=== PATIENT | male | born 1950 | race Caucasian/White ===

== ENCOUNTER 2017-04-09 09:23 | Day surgery (SDC) | payer MEDICARE, OTHER ==
[2017-04-09 09:46] LABS: INR 1.09; PROTHROMBIN TIME (PATIENT) 12.3 SECONDS (9.5-12.1)
[2017-04-09] MEDS ORDERED: LIDOCAINE 2% MDV (20MG/ML) 20ML VIAL IV ONE (14:00)
[2017-04-09] MEDS ORDERED: PROPOFOL 10 MG/ML VIAL IV ONE (14:00)
[2017-04-09] MEDS ORDERED: FENTANYL PF 100MCG/2ML VIAL IV ONE (14:00)
--- NOTE | 2017-04-15 13:20 | Operative Note ---
DATE OF SURGERY: 04/09/2017 OPERATION: ESOPHAGOGASTRODUODENOSCOPY. PREOPERATIVE DIAGNOSIS: GI bleed. POSTOPERATIVE DIAGNOSES: 1. Sigmoid diverticulosis. 2. Ascending colon polyps. 3. Normal upper endoscopy. ESTIMATED BLOOD LOSS: Minimum. SPECIMENS: Ascending colon polyps. PREPARATION QUALITY: Good. COMPLICATIONS: None apparent. PROCEDURE: After informed consent was obtained from the patient, he was placed in the left lateral decubitus position in the endoscopy suite. He was sedated and monitored by the department of anesthesia. A well-lubricated IVT933 gastroscope was placed in the posterior oropharynx and under direct visualization passed to the proximal esophagus. The endoscope was advanced through the proximal, mid, and distal esophagus. The GE junction and esophagus were unremarkable. No ulcers, erosions, strictures, or varices were seen. The gastric body demonstrated normal distensibility, normal rugal folds. The body, antrum, pylorus cannulated, duodenal bulb and sweep were unremarkable. There was no fresh or old blood or ulcers or inflammatory changes. No mass lesions were seen. J-turn views of the proximal stomach were unremarkable. The endoscope was then straightened and retracted from the patient with no new findings noted. Digital rectal exam was unremarkable. A well-lubricated CF160 AL adult colonoscope was inserted into the rectum and advanced to the cecum without difficulty. Preparation quality was good. The cecum and appendiceal orifice and ileocecal valve were unremarkable. In the ascending colon, there were 2 diminutive polyps, one 4 mm and one 3 mm, each removed with a cold forceps. Minimal bleeding was noted at the site. The remainder of the ascending colon, transverse colon, and descending colon were unremarkable. The sigmoid colon demonstrated [id number] diverticular changes without inflammation, polyps, or mass lesions being identified. The rectum was unremarkable in forward and in J-turn views. The endoscope was straightened, the rectal ampulla deflated, and the endoscope was removed. RECOMMENDATIONS: The patient should resume his medications and diet. He will require repeat colonoscopy in 3-5 years pending tissue results. I will have the patient undergo a capsule endoscopy to further evaluate the GI tract and determine if there is a small bowel source for his apparent recent bleed. As always, thank you for allowing me to participate in the healthcare of your patients. CC: [facility]
== END 2017-04-09 11:42 | disposition home or self-care (01) ==
LOC: HOP 09:23
PROVIDERS: ATTEND Internal Medicine Gastroenterology
DX: D12.2 Benign neoplasm of ascending colon (principal); K57.30 Diverticulosis of large intestine without perforation or abscess without bleeding; I10 Essential (primary) hypertension; E78.00 Pure hypercholesterolemia, unspecified; Z95.2 Presence of prosthetic heart valve
CPT/HCPCS: 85610

== ENCOUNTER 2017-09-25 14:56 | Emergency (ER) | payer MEDICARE, OTHER ==
--- NOTE | 2017-09-25 15:34 | Emergency Department Record ---
History of Present Illness - General Chief complaint: Lower Extremity Pain Stated complaint: LEFT LOWER LEG SORE Time Seen by Provider: 09/25/17 15:27 Source: Patient Mode of Arrival: Wheelchair - History of Present Illness Initial comments: the patient has a long history of vascular compromise, angioplasty of his lower extremities, and heart valve replacement now on Coumadin. He has a wound on his left lower leg which is not healing as it should. He changes the dressing himself every [address] Nichole just put him on Bactrim last week as well. He is concerned because of it not healing and continued weeping. He denies f,c, cp, scott ap, sob sob. Onset/Timin -: Week(s) Location: Left, Lower Leg Improves with: Nothing Worsens with: Nothing - Related Data Allergies Allergy/AdvReac Type Severity Reaction Status Date / Time Penicillins AdvReac ANAPHYLAXIS Verified 05/11/16 20:28 Travel Screening - Travel/Exposure Within Last 30 Days Have you traveled within the last 30 days?: No - Travel/Exposure Within Last Year Have you traveled outside the [place] in the last year?: No - Additonal Travel Details Have you been exposed to anyone with a communicable illness?: No - Travel Symptoms Symptom Screening: None Review of Systems Reviewed: No additional complaints except as noted below Constitutional: Reports: As per HPI. Denies: Chills, Fever, Malaise, Night sweats, Weakness, Weight change Eyes: Reports: As per HPI. Denies: Eye discharge, Eye pain, Photophobia, Vision change ENT: Reports: As per HPI. Denies: Congestion, Dental pain, Ear pain, Epistaxis , Hearing loss, Throat pain Respiratory: Reports: As per HPI. Denies: Cough, Dyspnea, Hemoptysis, Stridor, Wheezes Cardiovascular: Reports: As per HPI. Denies: Arrhythmia, Chest pain, Dyspnea on exertion, Edema, Murmurs, Orthopnea, Palpitations, Paroxysmal nocturnal dyspnea, Rheumatic Fever, Syncope Endocrine: Reports: As per HPI. Denies: Fatigue, Heat or cold intolerance, Polydipsia, Polyuria Gastrointestinal: Reports: As per HPI. Denies: Abdominal pain, Constipation, Diarrhea, Hematemesis, Hematochezia, Melena, Nausea, Vomiting Genitourinary: Reports: As per HPI. Denies: Dysuria, Frequency, Hematuria, Incontinence, Retention, Testicular pain, Testicular mass, Urgency Musculoskeletal: Reports: As per HPI. Denies: Arthralgia, Back pain, Gout, Joint swelling, Myalgia, Neck pain Skin: Reports: As per HPI. Denies: Bruising, Change in color, Change in hair/ nails, Lesions, Pruritus, Rash Neurological: Reports: As per HPI. Denies: Abnormal gait, Confusion, Headache, Numbness, Paresthesias, Seizure, Tingling, Tremors, Vertigo, Weakness Psychiatric: Reports: As per HPI. Denies: Anxiety, Auditory hallucinations, Depression, Homicidal thoughts, Suicidal thoughts, Visual hallucinations Hematological/Lymphatic: Reports: As per HPI. Denies: Anemia, Blood Clots, Easy bleeding, Easy bruising, Swollen glands Past Medical History - SOCIAL HISTORY Smoking Status: Former smoker Alcohol Use: Occasional Drug Use: None - RESPIRATORY Hx Respiratory Disorders: Yes Hx Bronchitis: Yes Hx Dyspnea: Yes Hx Sleep Apnea: Yes Hx of CPAP: No - CARDIOVASCULAR Hx Cardio Disorders: Yes Hx Cardiac Cath: Yes Hx Hypertension: Yes Hx Vascular Disease: Yes (Aortic valve replacement) - NEURO Hx Neuro Disorders: No - GI Hx GI Disorders: Yes Hx Reflux: Yes Hx Irritable Bowel: Yes Comment:: some difficulty with milk products - Hx Genitourinary Disorders: Yes Hx Kidney Stones: Yes - ENDOCRINE Hx Endocrine Disorders: No - MUSCULOSKELETAL Hx Musculoskeletal Disorders: Yes Hx Arthritis: Yes - PSYCH Hx Psych Problems: No - HEMATOLOGY/ONCOLOGY Hx Hematology/Oncology Disorders: No Comment:: problems with blood vessels in his legs Family Medical History Any Significant Family History?: No Hx Cancer: Father Hx Resp Disorders: Mother Physical Exam - General General Appearance: Alert, Oriented x3, Cooperative, No acute distress - Head Head exam: Normal inspection - Eye Eye exam: Normal appearance, PERRL Pupils: Normal accommodation - ENT ENT exam: Normal exam, Mucous membranes moist, Normal external ear exam, Normal orophraynx, TM's normal bilaterally Ear exam: Normal external inspection. negative: External canal tenderness Nasal Exam: Normal inspection. negative: Discharge, Sinus tenderness Mouth exam: Normal external inspection, Tongue normal Teeth exam: Normal inspection. negative: Dental caries Throat exam: Normal inspection. negative: Tonsillar erythema, Tonsillar exudate - Neck Neck exam: Normal inspection, Full ROM. negative: Tenderness - Respiratory Respiratory exam: Normal lung sounds bilaterally. negative: Respiratory distress - Cardiovascular Cardiovascular Exam: Regular rate, Normal rhythm, Normal heart sounds - GI/Abdominal GI/Abdominal exam: Soft, Normal bowel sounds. negative: Tenderness - Rectal Rectal exam: Deferred - exam: Deferred - Extremities Extremities exam: Normal inspection, Full ROM, Normal capillary refill, Other ( chronic vascular changes bilateral legs; left lateral lower leg with superficial upper layer of skin loss and weeping, all appears chronic. ). negative: Tenderness - Back Back exam: Reports: Normal inspection, Full ROM. Denies: Muscle spasm, Rash noted, Tenderness - Neurological Neurological exam: Alert, CN II-XII intact, Normal gait, Oriented X3, Reflexes normal. negative: Motor sensory deficit - Psychiatric Psychiatric exam: Normal affect, Normal mood - Skin Skin exam: Dry, Intact, Normal color, Warm Course Vital Signs 09/25/17 15:15 Temperature 98.5 F Pulse Rate 82 Respiratory 16 Rate Blood Pressure 179/90 Pulse Ox 94 L Medical Decision Making - Management Options MDM Management: No Additional Work-up Planned - Data Complexity MDM Data: X-Ray Ordered and/or Reviewed (Left lower leg xray: no bony defect or evidence of osteo; diffuse STS per radiology.) Disposition Clinical Impression: Vascular insufficiency of extremity Chronic ulcer of leg, limited to breakdown of skin Qualifiers: Laterality: left Qualified Code(s): L97.921 - Non-pressure chronic ulcer of unspecified part of left lower leg limited to breakdown of skin Disposition: Home, Self-Care Condition: (1) Good Instructions: Chronic Wound Care (ED) Additional Instructions: Keep covered for protection. Keep your previously scheduled apointment with Dr. Kim 10-01-17 at 11 a.m. without fail. Continue present meds. Forms: Patient Portal Access Quality - Quality Measures Quality Measures: N/A - Blood Pressure Screening Does Patient Have Any of the Following: No Blood Pressure Classification: Hypertensive Reading Systolic Measurement: 179 Diastolic Measurement: 90 Screening for High Blood Pressure: Patient Exclusion, Hx of HTN [G9744]
--- NOTE | 2017-09-25 23:03 | RADIOLOGY REPORT ---
EXAM: LOWER LEG, LEFT HISTORY: PAIN. TECHNIQUE: Two views of the left leg. COMPARISON: None. ENCOUNTER: Initial. FINDINGS: Diffuse soft tissue swelling and inflammation. No soft tissue gas. No acute osseous abnormality. No sinus tract formation. Degenerative changes are noted. IMPRESSION: NO ACUTE OSSEOUS ABNORMALITY. DIFFUSE SOFT TISSUE SWELLING. NO RADIOGRAPHIC EVIDENCE FOR OSTEOMYELITIS. JOB NUMBER: [id number] MTDD
== END 2017-09-25 16:38 | disposition home or self-care (01) ==
LOC: ER 14:56
DX: L97.821 Non-pressure chronic ulcer of other part of left lower leg limited to breakdown of skin (principal); I87.2 Venous insufficiency (chronic) (peripheral); I10 Essential (primary) hypertension; Z95.2 Presence of prosthetic heart valve; Z87.891 Personal history of nicotine dependence; Z79.01 Long term (current) use of anticoagulants
CPT/HCPCS: 99283; 99284

== ENCOUNTER 2017-11-24 15:35 | Inpatient (IN) | payer MEDICARE, OTHER ==
--- NOTE | 2017-11-24 16:20 | Emergency Department Record ---
History of Present Illness - General Chief Complaint: Shortness of breath Stated Complaint: VAZQUEZ,HYPERTENSIVE, Time Seen by Provider: 11/24/17 16:02 Source: Patient, Family Mode of Arrival: Ambulatory Limitations: No limitations - History of Present Illness Initial Comments: The patient is here due to a 2 week hx of progressively increasing SOB, VAZQUEZ, and BEE. He denies any Cp but has had increased leg edema. The patient denies any cough, fever, or sputum production. He does have a pacemaker and did have it interrogated recently and was told it was normal. MD Complaint: Shortness of breath Onset/Timin -: Week(s) Improves With: Nothing Worsens With: Exertion Associated Symptoms: Denies other symptoms - Related Data Home Medications Medication Instructions Recorded Confirmed Last Taken Albuterol Sulfate [Proair Hfa] 1 - 2 puff IH .EVERY 4-6 HOURS PRN 11/24/1711/2411/24/17 Aspirin [Aspir-Low] 81 mg PO DAILY 11/24/17 11/24/17 11/24/17 Fluticasone Propionate [Flonase] 2 spray EACH NARES DAILY 11/24/17 11/24/17 Allergies Allergy/AdvReac Type Severity Reaction Status Date / Time Penicillins AdvReac ANAPHYLAXIS Verified 11/24/17 16:55 Travel Screening - Travel/Exposure Within Last 30 Days Have you traveled within the last 30 days?: No - Travel/Exposure Within Last Year Have you traveled outside the [place] in the last year?: No - Additonal Travel Details Have you been exposed to anyone with a communicable illness?: No - Travel Symptoms Symptom Screening: None Review of Systems Constitutional: Denies: Chills, Fever Eyes: Denies: Eye discharge ENT: Denies: Congestion Respiratory: Reports: Dyspnea. Denies: Cough Cardiovascular: Denies: Arrhythmia, Chest pain Past Medical History - SOCIAL HISTORY Smoking Status: Former smoker Alcohol Use: Occasional Drug Use: None - RESPIRATORY Hx Respiratory Disorders: Yes Hx Bronchitis: Yes Hx Dyspnea: Yes Hx Sleep Apnea: Yes Hx of CPAP: No - CARDIOVASCULAR Hx Cardio Disorders: Yes Hx Cardiac Cath: Yes Hx Hypertension: Yes Hx Pacemaker/Defib: Yes Hx Vascular Disease: Yes (Aortic valve replacement) - NEURO Hx Neuro Disorders: No - GI Hx GI Disorders: Yes Hx Reflux: Yes Hx Irritable Bowel: Yes Comment:: some difficulty with milk products - Hx Genitourinary Disorders: Yes Hx Kidney Stones: Yes - ENDOCRINE Hx Endocrine Disorders: No - MUSCULOSKELETAL Hx Musculoskeletal Disorders: Yes Hx Arthritis: Yes - PSYCH Hx Psych Problems: No - HEMATOLOGY/ONCOLOGY Hx Hematology/Oncology Disorders: No Comment:: problems with blood vessels in his legs Family Medical History Any Significant Family History?: No Hx Cancer: Father Hx Resp Disorders: Mother Physical Exam - General General Appearance: Alert, Oriented x3, Cooperative, No acute distress - Head Head exam: Atraumatic, Normocephalic, Normal inspection - Eye Eye exam: Normal appearance, PERRL - ENT Throat exam: Normal inspection. negative: Tonsillar erythema, Tonsillar exudate - Neck Neck exam: Normal inspection, Full ROM. negative: Tenderness - Respiratory Respiratory exam: Decreased breath sounds. negative: Normal lung sounds bilaterally, Rales, Respiratory distress, Rhonchi, Stridor, Wheezes - Cardiovascular Cardiovascular Exam: Regular rate, Normal rhythm, Normal heart sounds - GI/Abdominal GI/Abdominal exam: Soft (Obese.), Normal bowel sounds. negative: Tenderness - Extremities Extremities exam: Pedal edema (chronic and 3+). negative: Normal inspection - Neurological Neurological exam: Alert. negative: Motor sensory deficit Course Vital Signs 11/24/17 11/24/17 15:44 16:12 Temperature 98.2 F Pulse Rate 50 L Respiratory 18 Rate Blood Pressure 158/70 [Left Arm] Pulse Ox 96 - Reevaluation(s) Reevaluation #1: The patient is doing better at this time. His O2 sats are improved on 3 Liters of Oxygen. I did discuss the workup with the patient and it appears he has mild CHF. Due to that fact I did order IV Lasix and did recommend hospital admission overnight and the patient agreed. I then did discuss the case with Wen CINTRON ) and she does accept the admission. 11/24/17 17:30 Medical Decision Making - Management Options MDM Management: Additional Work-up Planned (e.g. ADM/Transfer/OP Study) - Data Complexity MDM Data: Labs Ordered and/or Reviewed, X-Ray Ordered and/or Reviewed, EKG Ordered and/or Reviewed - Lab Data Result diagrams: 11/24/17 16:29 11/24/17 16:29 - EKG Data -: EKG Interpreted by Me (NSR with vent paced rhythm.) - Radiology Data Radiology results: Report reviewed (CXR: CMG stable, Mild CHF.) Disposition Disposition: Admit Clinical Impression: CHF (congestive heart failure) Qualifiers: Heart failure type: unspecified Heart failure chronicity: acute Qualified Code( s): I50.9 - Heart failure, unspecified Disposition: Still a Patient at [facility] Decision to Admit: Admit from ER Decision to Admit Date: 11/24/17 Decision to Admit Time: 17:31 Accepting Physician: Grant Time Discussed w/Accepting Physician: 17:32 Condition: (2) Stable Instructions: Dyspnea (ED) Forms: Patient Portal Access Time of Disposition: 17:32 Quality - Quality Measures Quality Measures: N/A - Blood Pressure Screening View Details: Yes Does Patient Have Any of the Following: No Blood Pressure Classification: Pre-Hypertensive BP Reading Systolic Measurement: 158 Diastolic Measurement: 80 Screening for High Blood Pressure: < Pre-Hypertensive BP, F/U Documented > [ G8950] Pre-Hypertensive Follow-up Interventions: Referral to alternative/primary care provider.
[2017-11-24 16:35] LABS: BASO % 0.4 % (0-6); EOS % 2.2 % (0-6); GRAN % 75.3 % (47-80); HEMATOCRIT 44.7 % (42.0-52.0); HEMOGLOBIN 13.6 gm/dl (14.0-18.0); LYMPH % 13.6 % (16-45); MEAN CELL VOLUME 77.5 fl (81-97); MEAN CORPUSCULAR HGB CONC 30.4 g/dl (32-36); MEAN PLATELET VOLUME 9.8 fl (7.4-10.4); MONO % 8.5 % (0-9); PLATELET COUNT 159 K/uL (130-400); RED BLOOD COUNT 5.77 M/uL (4.40-5.70); RED CELL DISTRIBUTION WIDTH 18.4 % (11.5-14.5); WHITE BLOOD COUNT W/O DIFF 7.9 K/uL (4.2-12.2)
[2017-11-24 16:36] LABS: MEAN CORPUSCULAR HEMOGLOBIN 23.5 pg (27-33)
[2017-11-24 16:45] LABS: BLOOD UREA NITROGEN 15 mg/dL (8-23); CREATININE 0.7 mg/dL (0.7-1.2); EST GLOMERULAR FILTRATION RATE > 60 mL/min
[2017-11-24 16:48] LABS: GLUCOSE,RANDOM 122 mg/dL (74-109); INR 2.8; PARTIAL THROMBOPLASTIN TIME 34.8 SECONDS (24.5-39.1); PROTHROMBIN TIME (PATIENT) 30.4 SECONDS (9.5-12.1)
[2017-11-24 16:51] LABS: CREATINE PHOSPHOKINASE 42 U/L (39-308)
[2017-11-24 16:53] LABS: CKMB 1.9 ng/mL (<6.73)
[2017-11-24] MEDS ORDERED: FUROSEMIDE IV 40MG/4ML VIAL IVP ONE (17:22)
[2017-11-24] MEDS ORDERED: ALBUTEROL HFA 8 GM INHALER INH PRN ×2 (19:15→19:29)
[2017-11-24] MEDS ORDERED: FLU VAC QS 2017-18 (INPT, 6MO+) 60MCG/0.5ML IM ONE (19:23)
[2017-11-24] MEDS: OXYCODONE HCL/APAP 5MG/325MG TABLET PO PRN (20:34)
[2017-11-24] MEDS: CARVEDILOL 12.5 MG TABLET PO SCH (21:20)
[2017-11-24] MEDS: HYDROCHLOROTHIAZIDE 12.5 MG CAPSULE PO SCH (21:21)
[2017-11-24] MEDS ORDERED: WARFARIN 5 MG TAB PO ONE ×2 (21:35→21:45)
[2017-11-24] MEDS ORDERED: SIMVASTATIN 20 MG TABLET PO SCH (21:45)
[2017-11-24] MEDS ORDERED: WARFARIN 1 MG TABLET PO ONE (22:00)
[2017-11-24 23:55] LABS: CKMB 1.8 ng/mL (<6.73)
[2017-11-25] MEDS: OXYCODONE HCL/APAP 5MG/325MG TABLET PO PRN ×2 (06:35→21:11)
--- NOTE | 2017-11-25 07:41 | RADIOLOGY REPORT ---
EXAM: CHEST, TWO VIEWS HISTORY: DIFFICULTY IN BREATHING MORE THAN USUAL. TECHNIQUE: PA and lateral views of the chest were obtained. Comparison: Two view chest 10/02/14. FINDINGS: Cardiomegaly. Postop sternotomy with a valve prosthesis as before. There is a new dual lead pacemaker in place compared to the prior study with the electrode leads in the region of the right atrium and right ventricle. No pneumothorax evident. There is probably some mild pulmonary venous hypertension currently. No acute alveolar infiltrate seen and no pleural effusion evident. Hypertrophic spurring in the spine. IMPRESSION: 1. POSTOP STERNOTOMY WITH A VALVE PROSTHESIS BEFORE. 2. NEW PACEMAKER SINCE 10/02/14 WITH NO PNEUMOTHORAX EVIDENT. 3. RELATIVELY STABLE CARDIOMEGALY, WITH MILD PULMONARY VENOUS HYPERTENSION. 4. PROMINENT SPURRING IN THE THORACIC SPINE. JOB NUMBER: [id number] [facility]
[2017-11-25 07:45] LABS: BASO % 0.4 % (0-6); EOS % 2.6 % (0-6); GRAN % 68.4 % (47-80); HEMATOCRIT 43.8 % (42.0-52.0); HEMOGLOBIN 12.9 gm/dl (14.0-18.0); LYMPH % 16.5 % (16-45); MEAN CELL VOLUME 78.2 fl (81-97); MEAN CORPUSCULAR HGB CONC 29.5 g/dl (32-36); MEAN PLATELET VOLUME 9.6 fl (7.4-10.4); MONO % 12.1 % (0-9); PLATELET COUNT 156 K/uL (130-400); RED CELL DISTRIBUTION WIDTH 18.3 % (11.5-14.5); WHITE BLOOD COUNT W/O DIFF 8.4 K/uL (4.2-12.2)
[2017-11-25 07:58] LABS: BLOOD UREA NITROGEN 14 mg/dL (8-23); CREATININE 0.8 mg/dL (0.7-1.2); EST GLOMERULAR FILTRATION RATE > 60 mL/min; GLUCOSE,RANDOM 122 mg/dL (74-109)
[2017-11-25 08:03] LABS: CKMB 1.7 ng/mL (<6.73)
[2017-11-25] MEDS: CARVEDILOL 12.5 MG TABLET PO SCH ×2 (09:29→21:10)
[2017-11-25] MEDS: LOSARTAN POTASSIUM 25 MG TABLET PO SCH ×2 (09:30→21:10)
[2017-11-25] MEDS: ASPIRIN 81 MG TABEC PO SCH (09:30)
[2017-11-25] MEDS: FUROSEMIDE IV 20MG/2ML VIAL IVP SCH ×2 (09:31→16:05)
[2017-11-25] MEDS: HYDROCHLOROTHIAZIDE 12.5 MG CAPSULE PO SCH ×2 (09:31→21:10)
[2017-11-25] MEDS ORDERED: CELECOXIB 100 MG CAPSULE PO SCH (10:00)
[2017-11-25] MEDS ORDERED: AMLODIPINE BESYLATE 5MG TAB PO SCH (10:00)
--- NOTE | 2017-11-25 11:13 | History & Physical ---
History of Present Illness - Date of Service Date of Service for History & Physical: 11/25/17 - History of Present Illness Admitting Diagnosis: 1. Acute CHF. History of Present Illness: 67 yo male admitted for dyspnea. Patient presented to our ED from Dr. Nichole 's office. States he had been experiencing worsening sob x 2 weeks. When patient's O2 was found to be in the 80s, he was sent over to the ED. Upon presentation, O2 96% on 3 Ls. wbc normal. CO2 36, BNP 746.7, troponin negative , EKG: paced NSR. CXR: CMG, pulm HTN. Patient was started on IV Lasix. Placed on surveillance monitor, Dr. Bro consulted. Patient admitted for further medical management. 11/25/16- pt sitting up in chair comfortably. states he's feeling much improved since admission. O2 sat 97% on 3 L's NC. He denies any VAZQUEZ, CP, worsening swelling of the LEs, cough, fever, chills, n/v, diarrhea, abd pain, or skin changes. Patient follows with vascular specialist for h/o venous insufficiency. Past cardiac history includes pacemaker, HTN, aortic valve replacement. Denies h/o NC, CVA. Has not smoked in over 40 years. H/o SAMY- has a hard time wearing his CPAP. Follows with [facility]. PCP: Dr. Nichole Travel Screening - Travel/Exposure Within Last 30 Days Have you traveled within the last 30 days?: No - Travel/Exposure Within Last Year Have you traveled outside the [place] in the last year?: No - Additonal Travel Details Have you been exposed to anyone with a communicable illness?: No - Travel Symptoms Symptom Screening: None Review of Systems Constitutional: Denies: Chills, Fever Eyes: Denies: Eye discharge ENT: Denies: Congestion Respiratory: Denies: Cough, Dyspnea, Wheezes Cardiovascular: Denies: Arrhythmia, Chest pain Endocrine: Denies: Fatigue Gastrointestinal: Denies: Abdominal pain Skin: Reports: Change in color (b/l LE stasis dermatitis) Neurological: Denies: Headache Psychiatric: Denies: Anxiety Past Medical History - SOCIAL HISTORY Smoking Status: Former smoker Alcohol Use: Occasional Drug Use: None - RESPIRATORY Hx Respiratory Disorders: Yes Hx Bronchitis: Yes Hx Dyspnea: Yes Hx Sleep Apnea: Yes Hx of CPAP: No - CARDIOVASCULAR Hx Cardio Disorders: Yes Hx Cardiac Cath: Yes Hx Hypertension: Yes Hx Pacemaker/Defib: Yes Hx Vascular Disease: Yes (Aortic valve replacement) - NEURO Hx Neuro Disorders: No - GI Hx GI Disorders: Yes Hx Reflux: Yes Hx Irritable Bowel: Yes Comment:: some difficulty with milk products - Hx Genitourinary Disorders: Yes Hx Kidney Stones: Yes - ENDOCRINE Hx Endocrine Disorders: No - MUSCULOSKELETAL Hx Musculoskeletal Disorders: Yes Hx Arthritis: Yes - PSYCH Hx Psych Problems: No - HEMATOLOGY/ONCOLOGY Hx Hematology/Oncology Disorders: No Comment:: problems with blood vessels in his legs Family Medical History Any Significant Family History?: No Hx Cancer: Father Hx Resp Disorders: Mother H&P Meds/Allergies - Allergies Allergies: Allergies Allergy/AdvReac Type Severity Reaction Status Date / Time Penicillins AdvReac ANAPHYLAXIS Verified 11/24/17 16:55 - Home Medications Home Medications Medication Instructions Recorded Confirmed Last Taken Albuterol Sulfate [Proair Hfa] 1 - 2 puff IH .EVERY 4-6 HOURS PRN 11/24/1711/2411/24/17 Aspirin [Aspir-Low] 81 mg PO DAILY 11/24/17 11/24/17 11/24/17 Fluticasone Propionate [Flonase] 2 spray EACH NARES DAILY 11/24/17 11/24/17 - Active Medications Active Medications: Current Medications Albuterol Sulfate (Ventolin Hfa) 1 puff INH Q4HR PRN PRN Reason: DIFFICULTY IN BREATHING Albuterol Sulfate (Ventolin Hfa) 2 puff INH Q4HR PRN PRN Reason: DIFFICULTY IN BREATHING Amlodipine Besylate (Norvasc) 5 mg PO BID [facility] Last Admin: 11/25/17 09:31 Dose: 5 mg Aspirin (Ecotrin (Ec)) 81 mg PO DAILY [facility] Last Admin: 11/25/17 09:30 Dose: 81 mg Carvedilol (Coreg) 25 mg PO BID [facility] Last Admin: 11/25/17 09:29 Dose: 25 mg Celecoxib (Celebrex) 200 mg PO DAILY [facility] Last Admin: 11/25/17 09:29 Dose: 200 mg Furosemide (Lasix Iv) 20 mg IVP BIDDIUR [facility] Last Admin: 11/25/17 09:31 Dose: 20 mg Hydrochlorothiazide (Hctz 12.5mg) 12.5 mg PO BID [facility] Last Admin: 11/25/17 09:31 Dose: 12.5 mg Losartan Potassium (Cozaar) 50 mg PO BID [facility] Last Admin: 11/25/17 09:30 Dose: 50 mg Non-Formulary Medication (Aliskiren Hemifumarate [Tekturna]) 300 mg PO DAILY [facility] Oxycodone/Acetaminophen (Percocet 5-325 Mg Tablet) 1 udtab PO Q4H PRN PRN Reason: Pain - Moderate (5-7) Stop: 12/01/17 19:16 Last Admin: 11/25/17 06:35 Dose: 1 udtab Simvastatin (Zocor) 40 mg PO QHS [facility] Warfarin Sodium (Coumadin) 2 mg PO [id number] [facility] Last Admin: 11/24/17 21:45 Dose: 2 mg Warfarin Sodium (Coumadin) 5 mg PO [id number] [facility] Last Admin: 11/24/17 21:44 Dose: 5 mg Physical Exam - Vital Signs Vital Signs: Vital Signs - Last 24 Hrs Temp Pulse Pulse Resp BP BP Pulse Ox 11/25/17 09:00 99.3 F 94 H 18 153/77 97 11/25/17 05:00 98.6 F 67 20 139/99 94 L 11/25/17 00:48 98.0 F 72 20 119/70 95 11/24/17 19:15 98.6 F 70 20 151/83 93 L - General General Appearance: Alert, Oriented x3, Cooperative, No acute distress, Other ( obese ) Limitations: No limitations - Head Head exam: Atraumatic, Normocephalic, Normal inspection - Eye Eye exam: Normal appearance, PERRL - ENT ENT exam: Normal exam Throat exam: Normal inspection. negative: Tonsillar erythema, Tonsillar exudate - Neck Neck exam: Normal inspection, Full ROM. negative: Tenderness - Respiratory Respiratory exam: Normal lung sounds bilaterally. negative: Accessory muscle use, Chest wall tenderness, Decreased breath sounds, Rales, Respiratory distress , Rhonchi, Stridor, Wheezes - Cardiovascular Cardiovascular Exam: Regular rate, Normal heart sounds - GI/Abdominal GI/Abdominal exam: Normal bowel sounds. negative: Tenderness - Rectal Rectal exam: Deferred - exam: Deferred - Extremities Extremities exam: Pedal edema (chronic and 3+, stasis dermatitis, sheyla hose present). negative: Normal inspection - Neurological Neurological exam: Alert, Oriented X3. negative: Motor sensory deficit - Psychiatric Psychiatric exam: Normal mood Results - Labs Result Diagrams: 11/25/17 07:37 11/25/17 07:37 Labs Last 24 Hours: Laboratory Results - last 24 hr 11/24/17 11/25/17 11/25/17 23:30 07:37 07:37 WBC 8.4 RBC 5.60 Hgb 12.9 L Hct 43.8 MCV 78.2 L MCH 23.0 L MCHC 29.5 L RDW 18.3 H Plt Count 156 MPV 9.6 Gran % 68.4 Lymphocytes % 16.5 Monocytes % 12.1 H Eosinophils % 2.6 Basophils % 0.4 Sodium Potassium Chloride Carbon Dioxide Anion Gap BUN Creatinine Estimated GFR Random Glucose Calcium CK-MB (CK-2) 1.8 1.7 Troponin T < 0.010 < 0.010 11/25/17 07:37 WBC RBC Hgb Hct MCV MCH MCHC RDW Plt Count MPV Gran % Lymphocytes % Monocytes % Eosinophils % Basophils % Sodium 140 Potassium 3.8 Chloride 96 L Carbon Dioxide 38.0 H Anion Gap 6.0 L BUN 14 Creatinine 0.8 Estimated GFR > 60 Random Glucose 122 H Calcium 8.0 L CK-MB (CK-2) Troponin T VTE H&P Assessment - Risk for VTE Risk for VTE: Yes Risk Level: High Risk Assessment Date: 11/25/17 Risk Assessment Time: 11:00 VTE Orders Placed or Will Be Placed: Yes Plan - Detailed Diagnosis and Plan (1) Dyspnea Current Visit: Yes Status: Acute Base Code: R06.00 - DYSPNEA, UNSPECIFIED Comment: 11/25 - pulm venous htn, obesity vs. other? - CXR: CMG, venous insuff. - BNP mildly elevated at 746.7, CO2 38 - trop neg x 3. patient denies CP. - EKG: nsr, paced rhythm. surveillance monitor - I&O's, daily weights - IV lasix 20 mg BID - Encouraged patient to bring in CPAP, however state he doesn't use it much - will attemp to wean patient off supplemental O2 - cardiac consult- Dr. Bro plans ECHO on Thursday. - may need home O2 qualification prior to DC (2) HTN (hypertension) Current Visit: Yes Status: Acute Base Code: I10 - ESSENTIAL (PRIMARY) HYPERTENSION Comment: 11/25 - Continue home medications (Losartan 50 mg bid, norvasc 5 mg bid, coreg 25 mg bid, HCTZ 12.5 mg BID) (3) DVT prophylaxis Current Visit: Yes Status: Acute Base Code: [id number] - Comment: 11/25 - patient on coumadin (4) Vascular insufficiency of extremity Current Visit: No Status: Acute Base Code: I99.8 - OTHER DISORDER OF CIRCULATORY SYSTEM Comment: 11/25 - chronic b/l LE +3 edema w/ stasis dermatitis - diuresis, elevated, sheyla hose (5) Patient is full code Current Visit: Yes Status: Acute Base Code: Z78.9 - OTHER SPECIFIED HEALTH STATUS Comment: 11/25 - FULL CODE
[2017-11-25] MEDS ORDERED: WARFARIN 1 MG TABLET PO SCH (16:00)
[2017-11-25] MEDS ORDERED: WARFARIN 5 MG TAB PO SCH (16:00)
[2017-11-25] MEDS: WARFARIN 5 MG TAB PO SCH (18:18)
[2017-11-25] MEDS: SIMVASTATIN 20 MG TABLET PO SCH (18:18)
[2017-11-25] MEDS: WARFARIN 1 MG TABLET PO SCH (18:19)
--- NOTE | 2017-11-25 20:47 | Medical Records Consult ---
DATE OF CONSULTATION: INDICATION: CHF. ORDERED BY: EMERGENCY DEPARTMENT. BRIEF HISTORY: Bear Humphrey is followed by Dr. Tip Kim. He has a history of a heart block, pacemaker. He is followed by Dr. Kim for venous insufficiency in his lower extremities. He has no prior diagnosis of congestive heart failure. He had normal coronary arteries before an aortic valve replacement. He is morbidly obese. He states again he has been chronically short of breath for years but worse over the last couple weeks. He hasn't noticed any change in his edema, which is chronic 2 to 3+ edema. Venous insufficiency changes are no worse , he states, than in the past. He was apparently admitted for a B-type natriuretic peptide of 746, which while not normal is pretty much for his age group not to be unexpected. There was no evidence of congestive heart failure, pleural effusions on chest x-ray. PAST MEDICAL HISTORY: AV block complete, pacemaker. Varicose veins in bilateral lower extremities with complications. Morbid obesity. Aortic valve replacement. Hypertension. Pain and edema. ALLERGIES: PENICILLIN. MEDICATIONS: Medications currently not listed on any of the ER notes that I have available to for review, which is limited. When last seen by Dr. Kim, he was on: Tekturna 300 mg daily Carvedilol 25 mg b.i.d. Celebrex 200 mg b.i.d. Coumadin 5 mg as directed Multivitamin tablet daily Simvastatin 40 mg daily [place] 5/325 as directed Losartan Hydrochlorothiazide 100/25 daily Aspirin 81 mg daily Amlodipine 5 mg daily Sulfamethoxazole 800 mg/Trimethoprim 160 mg one p.o. b.i.d. Voltaren Topical Gel as directed Restoril 30 mg one daily Fluticasone 50 mcg actuation nasal spray suspension take as directed Omeprazole 20 mg tablet delayed released one/day ProAir HFA 90 mcg per actuation aerosol inhaler take as directed SOCIAL HISTORY: Denies tobacco history. No alcohol. No regular exercise. REVIEW OF SYSTEMS: GENERAL: No fevers, chills, night sweats. HEENT: No acute hearing/vision changes. NECK: No neck pain. CARDIOVASCULAR: No chest pain. Positive for dyspnea , worsening over last several weeks. No orthopnea, PND, no syncope, no claudication symptoms. Chronic venous insufficiency. PULMONARY: Chronic shortness of breath, worse over the last few weeks. No cough, hemoptysis. GI: No nausea, vomiting. No tarry or bloody stools. : No dysuria or hematuria. ENDOCRINE: Denies diabetes history or thyroid history. HEME: No unexplained bruising or bleeding. NEURO: No stroke, seizure history. PHYSICAL EXAMINATION: Vital Signs: Temperature 98. Blood pressure 119/70. Respirations 20. O2 95% on 3 liters in nasal cannula. EKG: Atrial sense, ventricular sense, base complexes. He states his last pacemaker check was unremarkable. We are not sure when that was. LABORATORY: See EMR. ASSESSMENT/PLAN: DYSPNEA, SHORTNESS OF BREATH, WORSENING OVER THE LAST SEVERAL WEEKS: We will get an echocardiogram. They are no available today, so he will stay until Thursday. I don't believe he has significant congestive heart failure. Again, his NT-proBNP is minimally elevated. Most of his issues are likely related to his morbid obesity but we will certainly check his heart out and make sure his systolic function is normal. He had normal coronary arteries by heart catheterization at the time of his bypass surgery in 2011. JOB NUMBER: [id number] [facility]
[2017-11-25] MEDS: CELECOXIB 100 MG CAPSULE PO SCH (21:10)
--- NOTE | 2017-11-26 09:06 | Physician Progress Note ---
Subjective - Date Date of Physician Progress Note: 11/26/17 - Subjective Subjective Comment: 11/26/17 - The patient is sitting up in the chair at bedside and says that he had no issues overnight. He appears comfortable on 3 liters nasal cannula oxygen. Objective - Vital Signs Vital Signs: Vital Signs - Last 24 Hrs Temp Pulse Pulse Resp BP BP Pulse Ox 11/26/17 08:00 98.4 F 71 16 154/71 92 L 11/26/17 04:00 73 18 139/72 92 L 11/26/17 00:00 60 18 110/72 93 L 11/25/17 21:00 98.5 F 101 H 65 20 153/79 94 L 11/25/17 17:00 98.6 F 65 18 148/74 95 11/25/17 13:00 99.0 F 80 18 150/76 96 - General General Appearance: Alert, Oriented x3, Cooperative, No acute distress, Other ( obese ) Limitations: No limitations - Head Head exam: Atraumatic, Normocephalic, Normal inspection - Eye Eye exam: Normal appearance, PERRL - ENT ENT exam: Normal exam Throat exam: Normal inspection. negative: Tonsillar erythema, Tonsillar exudate - Neck Neck exam: Normal inspection, Full ROM. negative: Tenderness - Respiratory Respiratory exam: Normal lung sounds bilaterally. negative: Accessory muscle use, Chest wall tenderness, Decreased breath sounds, Rales, Respiratory distress , Rhonchi, Stridor, Wheezes - Cardiovascular Cardiovascular Exam: Regular rate, Normal heart sounds Peripheral Pulses: 1+: Dorsalis Pedis (R), Dorsalis Pedis (L), 2+: Radial (R), Radial (L) - GI/Abdominal GI/Abdominal exam: Normal bowel sounds. negative: Tenderness - Rectal Rectal exam: Deferred - exam: Deferred - Extremities Extremities exam: Pedal edema (chronic and 3+, stasis dermatitis, jarocho hose present). negative: Normal inspection - Neurological Neurological exam: Alert, Oriented X3. negative: Motor sensory deficit - Psychiatric Psychiatric exam: Normal mood Assessment and Plan - Assessment and Plan (1) Dyspnea Current Visit: Yes Status: Acute Base Code: R06.00 - DYSPNEA, UNSPECIFIED Comment: 11/26/17 - etiology not yet established. Possibly CHF, Pulm HTN as a result of SAMY and obesity. - CXR: negative for congestion, telemetry paced rhythm. - I&O's, daily weight, titrate oxygen to maintain sats > 92%, may requires continuous O2 @ discharge. Will assess for qualification. (2) Vascular insufficiency of extremity Current Visit: No Status: Acute Base Code: I99.8 - OTHER DISORDER OF CIRCULATORY SYSTEM Comment: 11/26/17 - chronic b/l LE +3 edema w/ stasis dermatitis. At baseline according to the patient. - diurese with Lasix 40mg PO daily, d/c IV lasic - cont leg elevation and JAROCHO hoses, ambulation as tolerated. (3) HTN (hypertension) Current Visit: Yes Status: Acute Base Code: I10 - ESSENTIAL (PRIMARY) HYPERTENSION Comment: 11/26/17 - BP well controlled 154/71 - on home medications ARB, CCB, BB and Diuretic, with holding parameters for SBP <110, HR < 55 (4) Aortic valve replaced Current Visit: Yes Status: Acute Base Code: Z95.2 - PRESENCE OF PROSTHETIC HEART VALVE Comment: 11/26/17 - mechanical prosthetic valve placed in 2011. - on chronic anticoagulation with Coumadin 2mg/5mg - INR 2.8 - pending 2D echo in the morning. Cardiology recommendations to follow. (5) S/P placement of cardiac pacemaker Current Visit: Yes Status: Acute Base Code: Z95.0 - PRESENCE OF CARDIAC PACEMAKER Comment: 11/26/17 - s/p complete av block. - cont telemetry monitoring (6) DVT prophylaxis Current Visit: Yes Status: Acute Base Code: [id number] - Comment: 11/26/17 - patient on coumadin (7) Patient is full code Current Visit: Yes Status: Acute Base Code: Z78.9 - OTHER SPECIFIED HEALTH STATUS Comment: - FULL CODE - Disposition Disposition: Pending 2D echo in the morning and cardiology follow up. Continuous oxygen may be required at discharge. Follow up with PCP at earliest opportunity for chronic care. Results - Labs Result Diagrams: 11/25/17 07:37 11/25/17 07:37 DVT/PE Assessment - Risk for VTE Risk for VTE: Yes Risk Level: High Risk Assessment Date: 11/25/17 Risk Assessment Time: 11:00 VTE Orders Placed or Will Be Placed: Yes - Active Medicaitons Current Medications: Current Medications Albuterol Sulfate (Ventolin Hfa) 1 puff INH Q4HR PRN PRN Reason: DIFFICULTY IN BREATHING Albuterol Sulfate (Ventolin Hfa) 2 puff INH Q4HR PRN PRN Reason: DIFFICULTY IN BREATHING Amlodipine Besylate (Norvasc) 5 mg PO DAILY [facility] Aspirin (Ecotrin (Ec)) 81 mg PO DAILY [facility] Last Admin: 11/25/17 09:30 Dose: 81 mg Carvedilol (Coreg) 25 mg PO BID [facility] Last Admin: 11/25/17 21:10 Dose: 25 mg Celecoxib (Celebrex) 200 mg PO BID [facility] Last Admin: 11/25/17 21:10 Dose: 200 mg Furosemide (Lasix) 40 mg PO DAILY [facility] Hydrochlorothiazide (Hctz 12.5mg) 12.5 mg PO BID [facility] Last Admin: 11/25/17 21:10 Dose: 12.5 mg Losartan Potassium (Cozaar) 50 mg PO BID [facility] Last Admin: 11/25/17 21:10 Dose: 50 mg Non-Formulary Medication (Aliskiren Hemifumarate [Tekturna]) 300 mg PO DAILY [facility] Oxycodone/Acetaminophen (Percocet 5-325 Mg Tablet) 1 udtab PO Q4H PRN PRN Reason: Pain - Moderate (5-7) Stop: 12/01/17 19:16 Last Admin: 11/25/17 21:11 Dose: 1 udtab Simvastatin (Zocor) 40 mg PO 1900 [facility] Last Admin: 11/25/17 18:18 Dose: 40 mg Warfarin Sodium (Coumadin) 2 mg PO 1900 [facility] Last Admin: 11/25/17 18:19 Dose: 2 mg Warfarin Sodium (Coumadin) 5 mg PO 1900 [facility] Last Admin: 11/25/17 18:18 Dose: 5 mg AMI Plan - Labs Result Diagrams: 11/25/17 07:37 11/25/17 07:37
[2017-11-26] MEDS: ALISKIREN HEMIFUMARATE 300 MG PO SCH (09:14)
[2017-11-26] MEDS: CELECOXIB 100 MG CAPSULE PO SCH ×2 (09:15→21:06)
[2017-11-26] MEDS: CARVEDILOL 12.5 MG TABLET PO SCH ×2 (09:15→21:06)
[2017-11-26] MEDS: ASPIRIN 81 MG TABEC PO SCH (09:16)
[2017-11-26] MEDS: LOSARTAN POTASSIUM 25 MG TABLET PO SCH ×2 (09:16→21:06)
[2017-11-26] MEDS: HYDROCHLOROTHIAZIDE 12.5 MG CAPSULE PO SCH ×2 (09:17→21:06)
[2017-11-26] MEDS: AMLODIPINE BESYLATE 5MG TAB PO SCH (09:17)
[2017-11-26] MEDS: FUROSEMIDE 40 MG TABLET PO SCH (09:17)
--- NOTE | 2017-11-26 14:25 | Inpatient Certification ---
Inpatient Certification Admit to inpatient care: Based on my medical assessment, after consideration of patient's risk factors (age, co-morbidities and patient presenting symptoms and acuity), I expect that this patient will remain in the hospital greater than or equal to two midnights and that the services needed warrant inpatient care because: Patient Risk Factors: hypoxia Estimated length of stay: 3 days The patient may reasonably be expected to be discharged or transferred to a hospital within 96 hours after admission to [facility]. Services needed: Respiratory/PT/OT Post hospital care (if known): Cont oxygen therapy I certify that my determination is in accordance with my understanding of Medicare requirements for reasonable and necessary inpatient services. 11/26/17 14:24
[2017-11-26] MEDS: WARFARIN 1 MG TABLET PO SCH (18:53)
[2017-11-26] MEDS: WARFARIN 5 MG TAB PO SCH (18:54)
[2017-11-26] MEDS: SIMVASTATIN 20 MG TABLET PO SCH (18:55)
[2017-11-26] MEDS: OXYCODONE HCL/APAP 5MG/325MG TABLET PO PRN (18:55)
[2017-11-27 07:55] LABS: BLOOD UREA NITROGEN 15 mg/dL (8-23); CREATININE 0.7 mg/dL (0.7-1.2); EST GLOMERULAR FILTRATION RATE > 60 mL/min; GLUCOSE,RANDOM 119 mg/dL (74-109)
[2017-11-27] MEDS: CELECOXIB 100 MG CAPSULE PO SCH (10:37)
[2017-11-27] MEDS: FUROSEMIDE 40 MG TABLET PO SCH (10:37)
[2017-11-27] MEDS: ASPIRIN 81 MG TABEC PO SCH (10:37)
[2017-11-27] MEDS: CARVEDILOL 12.5 MG TABLET PO SCH (10:37)
[2017-11-27] MEDS: AMLODIPINE BESYLATE 5MG TAB PO SCH (10:37)
[2017-11-27] MEDS: HYDROCHLOROTHIAZIDE 12.5 MG CAPSULE PO SCH (10:37)
[2017-11-27] MEDS: LOSARTAN POTASSIUM 25 MG TABLET PO SCH (10:38)
[2017-11-27] MEDS: OXYCODONE HCL/APAP 5MG/325MG TABLET PO PRN (10:41)
[2017-11-27] MEDS: ALISKIREN HEMIFUMARATE 300 MG PO SCH (10:43)
--- NOTE | 2017-11-27 16:38 | Discharge Summary ---
Providers Discharge Summary Date: 11/27/17 Date of admission: 11/24/17 19:10 Attending physician: JAN ALONZO Primary care physician: CHHAYA NICHOLE D.O. Physical Exam - Vital Signs Vital Signs: Vital Signs - Last 24 Hrs Temp Pulse Pulse Resp BP Pulse Ox 11/27/17 12:00 98.7 F 65 18 140/76 94 L 11/27/17 10:58 100 H 20 95 11/27/17 08:00 99.1 F 66 18 142/86 94 L 11/27/17 04:00 98.6 F 70 16 138/70 97 11/27/17 00:00 97.8 F 66 17 138/75 95 11/26/17 20:29 64 16 11/26/17 19:56 98.4 F 64 16 154/77 96 - General General Appearance: Alert, Oriented x3, Cooperative, No acute distress, Other ( obese ) Limitations: No limitations - Head Head exam: Atraumatic, Normocephalic, Normal inspection - Eye Eye exam: Normal appearance, PERRL - ENT ENT exam: Normal exam Throat exam: Normal inspection. negative: Tonsillar erythema, Tonsillar exudate - Neck Neck exam: Normal inspection, Full ROM. negative: Tenderness - Respiratory Respiratory exam: Normal lung sounds bilaterally. negative: Accessory muscle use, Chest wall tenderness, Decreased breath sounds, Rales, Respiratory distress , Rhonchi, Stridor, Wheezes - Cardiovascular Cardiovascular Exam: Regular rate, Normal heart sounds Peripheral Pulses: 1+: Dorsalis Pedis (R), Dorsalis Pedis (L), 2+: Radial (R), Radial (L) - GI/Abdominal GI/Abdominal exam: Normal bowel sounds. negative: Tenderness - Rectal Rectal exam: Deferred - exam: Deferred - Extremities Extremities exam: Pedal edema (chronic and 3+, stasis dermatitis, jarocho hose present). negative: Normal inspection - Neurological Neurological exam: Alert, Oriented X3. negative: Motor sensory deficit - Psychiatric Psychiatric exam: Normal mood Hospitalization - Hospitalization Admission Diagnosis: 1. Acute CHF. - Problem List/Discharge Diagnosis (1) Dyspnea Status: Acute Base Code: R06.00 - DYSPNEA, UNSPECIFIED Comment: 11/26/17 - etiology not yet established. Possibly CHF, Pulm HTN as a result of SAMY and obesity. - CXR: negative for congestion, telemetry paced rhythm. - I&O's, daily weight, titrate oxygen to maintain sats > 92%, may requires continuous O2 @ discharge. Will assess for qualification. (2) Vascular insufficiency of extremity Status: Acute Base Code: I99.8 - OTHER DISORDER OF CIRCULATORY SYSTEM Comment: 11/26/17 - chronic b/l LE +3 edema w/ stasis dermatitis. At baseline according to the patient. - diurese with Lasix 40mg PO daily, d/c IV lasic - cont leg elevation and JAROCHO hoses, ambulation as tolerated. (3) HTN (hypertension) Status: Acute Base Code: I10 - ESSENTIAL (PRIMARY) HYPERTENSION Comment: 11/26/17 - BP well controlled 154/71 - on home medications ARB, CCB, BB and Diuretic, with holding parameters for SBP <110, HR < 55 (4) Aortic valve replaced Status: Acute Base Code: Z95.2 - PRESENCE OF PROSTHETIC HEART VALVE Comment : 11/26/17 - mechanical prosthetic valve placed in 2011. - on chronic anticoagulation with Coumadin 2mg/5mg - INR 2.8 - pending 2D echo in the morning. Cardiology recommendations to follow. (5) S/P placement of cardiac pacemaker Status: Acute Base Code: Z95.0 - PRESENCE OF CARDIAC PACEMAKER Comment: - s/p complete av block. - cont telemetry monitoring (6) DVT prophylaxis Status: Acute Base Code: [id number] - Comment: 11/26/17 - patient on coumadin (7) Patient is full code Status: Acute Base Code: Z78.9 - OTHER SPECIFIED HEALTH STATUS Comment: - FULL CODE - Disposition Pending 2D echo in the morning and cardiology follow up. Continuous oxygen may be required at discharge. Follow up with PCP at earliest opportunity for chronic care. - Hospitalization Course Disposition: Home, Self-Care Hospital Course: 67 yo male admitted for dyspnea. Patient presented to our ED from Dr. Nichole 's office. States he had been experiencing worsening sob x 2 weeks. When patient's O2 was found to be in the 80s, he was sent over to the ED. Upon presentation, O2 96% on 3 Ls. wbc normal. CO2 36, BNP 746.7, troponin negative , EKG: paced NSR. CXR: CMG, pulm HTN. Patient was started on IV Lasix. Placed on cardiac surgeon, Dr. Bro consulted. Patient admitted for further medical management. 11/25/16- pt sitting up in chair comfortably. states he's feeling much improved since admission. O2 sat 97% on 3 L's NC. He denies any VAZQUEZ, CP, worsening swelling of the LEs, cough, fever, chills, n/v, diarrhea, abd pain, or skin changes. Patient follows with vascular specialist for h/o venous insufficiency. Past cardiac history includes pacemaker, HTN, aortic valve replacement. Denies h/o LA, CVA. Has not smoked in over 40 years. H/o SAMY- has a hard time wearing his CPAP. Follows with [facility]. 11/26 - the patient is stable and appears to resting comfortably without complaint. He is requiring oxygen at rest but has no other complaints at this time. Labs are within normal limits. Oxygen home qualifier approved. 11/27 - echo completed; does not show heart failure, subjective notation of ' preserved EF,' and normal functioning of the prosthesis. Cardiology has reviewed the patient prior to discharge and recommend that he follow up with his Clinical Document Improvement Educator Dr. Kim. He is being discharged home with supplemental oxygen at 2 liters for continuous use. Procedures: Cardiology Procedures 11/25/17 10:05 Echo W/CF & Cardiac Doppler NOW Abnormal Labs: Abnormal Lab Results 11/25/17 11/25/17 11/27/17 Range/Units 07:37 07:37 06:20 Hgb 12.9 L (14.0-18.0) gm/dl MCV 78.2 L (81-97) fl MCH 23.0 L (27-33) pg MCHC 29.5 L (32-36) g/dl RDW 18.3 H (11.5-14.5) % Monocytes % 12.1 H (0-9) % Chloride 96 L 92 L (98-107) mmol/L Carbon Dioxide 38.0 H 42.0 H (22-29) mmol/L Anion Gap 6.0 L 2.0 L (7-16) Random Glucose 122 H 119 H (74-109) mg/dL Calcium 8.0 L 8.1 L (8.8-10.2) mg/dL Condition at Discharge: (2) Stable Discharge Medications - Discharge Medications Prescriptions: Furosemide [Lasix] 40 mg PO DAILY #30 tablet Home Medications: Ambulatory Orders [place] Hemifumarate [Tekturna] 300 mg PO DAILY 10/02/14 [Last Taken 11/24/17] Amlodipine Besylate [Norvasc] 5 mg PO BID 10/02/14 [Last Taken 11/24/17] Carvedilol [Coreg] 25 mg PO BID 10/02/14 [Last Taken 11/24/17] Celecoxib [Celebrex] 200 mg PO DAILY 10/02/14 [Last Taken 11/24/17] Losartan/Hydrochlorothiazide [Hyzaar 100-25 Tablet] 0.5 tab PO BID 10/02/14 [ Last Taken 11/24/17] Simvastatin [Zocor] 40 mg PO DAILY 10/02/14 [Last Taken 11/24/17] Warfarin Sodium [Coumadin] 1 mg PO DAILY 10/02/14 [Last Taken 11/24/17] Warfarin Sodium [Coumadin] 6 mg PO DAILY 10/02/14 [Last Taken 11/24/17] Oxycodone HCl/Acetaminophen [Oxycodone/Acetaminophen 5mg/325mg] 1 tab PO Q4H PRN 07/18/15 [Last Taken 11/24/17] Albuterol Sulfate [Proair Hfa] 1 - 2 puff IH .EVERY 4-6 HOURS PRN 11/24/17 [ Last Taken 11/24/17] Aspirin [Aspir-Low] 81 mg PO DAILY 11/24/17 [Last Taken 11/24/17] Fluticasone Propionate [Flonase] 2 spray EACH NARES DAILY 11/24/17 [Last Taken 11/24/17] Celecoxib [Celebrex] 200 mg PO BID cap 11/27/17 [Last Taken Unknown] Furosemide [Lasix] 40 mg PO DAILY #30 tablet 11/27/17 [Last Taken Unknown] Discharge Plan - Discharge Instructions Activity at Discharge: Resume Usual Activities As Tolerated Diet at Discharge: Low Fat, Low Cholesterol, Low Salt Diet Instructions: Dyspnea (ED) Additional Instructions: Appointments have been scheduled for you as follows: November 30 at 11:[address] Nichole Follow up with Clinical Document Improvement Educator Dr. Kim as planned. Lasix 40mg, 1 tablet daily Aquafoam to open areas bilateral Quality Measures - Quality Measures Quality Measures: Advance Directives, Documentation of Current Medications in Medical Record, Elder Maltreatment Screen and Follow-Up Plan, Screening for High Blood Pressure and F/U Documented - Current Medications Quality Measure: Measure #130: Documentation of Current Medications Documentation of Current Medications: <Current Medications Documented/Reviewed> [[id number]] - Blood Pressure Screening Quality Measure: Screening for High Blood Pressure and Follow-Up Documented Does Patient Have Any of the Following: Active Dx of HTN Blood Pressure Classification: Hypertensive Reading Systolic Measurement: 154 Diastolic Measurement: 71 Screening for High Blood Pressure: Patient Exclusion, Hx of HTN [G9744] - Advance Directives Quality Measure: Measure #47: Care Plan Advance Directives Established: No Advance Directives Information Provided To Patient: Declined Advance Directives on File: No Living Will: No Power of Wood Borer: Yes Power of Wood Borer Name: CARLY BORDEN Advance Care Planning: Not Discussed or Documented [[id number]] - Elder Abuse Suspicion Index Screening: Elder Abuse Suspicion Index Screening Rely on people for bathing, dressing, shopping, banking, etc: No Prevented from getting food, clothes, medication, etc: No Made to feel shamed or threatened by someone: No Forced to sign papers or use money against will: No Feel afraid, touched in ways not wanted or hurt physically: No Poor eye contact, withdrawn, malnourished, cuts or bruises: No Screening Result: Negative result EASI Reference Information: [place] CRENSHAW, Carl C, Antonio D, Amie Hernandez.Development and validation of a tool to assist physicians identification of elder abuse: The Elder Abuse Suspicion Index (EASI ). Journal of Elder Abuse and Neglect, 2008; 20 (3): 276-300. - Elder Maltreatment Screen Quality Measures: Elder Maltreatment Screen and Follow-Up Plan Elder Maltreatment Screen: <Negative, No Follow-Up Plan Required> [G8734]
== END 2017-11-27 16:45 | disposition home or self-care (01) | DRG 204 ==
LOC: ER 15:35 → MEDSURG 19:10 → OBSVTOIN 19:10
PROVIDERS: ADMIT Internal Medicine; ATTEND Internal Medicine
DX: R06.00 Dyspnea, unspecified (principal); R06.02 Shortness of breath; I27.20 Pulmonary hypertension, unspecified; I10 Essential (primary) hypertension; E66.9 Obesity, unspecified; Z79.01 Long term (current) use of anticoagulants; M19.90 Unspecified osteoarthritis, unspecified site; G47.30 Sleep apnea, unspecified; I25.10 Atherosclerotic heart disease of native coronary artery without angina pectoris; R60.0 Localized edema; Z95.2 Presence of prosthetic heart valve; Z95.0 Presence of cardiac pacemaker; I99.8 Other disorder of circulatory system; Z78.9 Other specified health status; Z87.891 Personal history of nicotine dependence
CPT/HCPCS: 71046; 80048; 82550; 82553; 83880; 84484; 85025; 85610; 85730; 90686; 93005; 93010; 93306; 94620; 94760; 96374; 99223; 99233; 99239; 99285; J1940